=== PATIENT | female | born 1960 | race Caucasian/White ===

== ENCOUNTER 2017-02-13 16:16 | Emergency (ER) | payer MEDICAID ==
[~2017-02-13] VITALS: Ht 157.5 cm; Wt 72.0 kg
[~2017-02-13 16:16] MED LIST: ACET-2708 PO; AMLO10TA80; ASPI81TA2 PO; GABA-290 PO; HYDR-2510 PO; IBUPROFEN; LOVA40TA73 PO; METF-517; NPH,100V11 SUBCUT; OMEG1CAP17 PO; OMEP20CA4 PO
[2017-02-13] MEDS ORDERED: ONDANSETRON HCL 4MG/2ML VIAL IV STA (17:23)
[2017-02-13] MEDS ORDERED: SODIUM CHLORIDE 0.9% 500 ML IV ONE (17:23)
[2017-02-13] MEDS ORDERED: KETOROLAC 30MG/ML VIAL IV STA (17:23)
[2017-02-13] MEDS ORDERED: ASPIRIN 81MG TABLET PO STA (17:23)
[2017-02-13] MEDS ORDERED: MORPHINE SULFATE 4 MG/ML CPJ (NOT FOR IM USE) IV STA (17:23)
[2017-02-13 17:57] LABS: BASOPHILS % 0.6 % (0.0-2.0); EOSINOPHILS % 2.3 % (0.0-5.0); HEMATOCRIT. 36.6 % (36.0-48.0); HEMOGLOBIN. 12.3 g/dL (12.0-16.0); LYMPHOCYTES % 27.4 % (20.0-50.0); MEAN CORPUSCULAR HEMOGLOBIN 28.3 pg (28.0-32.0); MEAN CORPUSCULAR HGB CONC 33.6 g/dL (31.0-37.0); MEAN CORPUSCULAR VOLUME 84.2 fL (81.0-99.0); MEAN PLATELET VOLUME 10.1 fl (7.4-10.4); MONOCYTES % 8.9 % (2.0-8.0); NEUTROPHILS % 60.8 % (40.0-76.0); PLATELET 247 x1000/uL (130-400); RED BLOOD CELL COUNT 4.35 mill/uL (4.2-5.4); RED CELL DISTRIBUTION WIDTH 13.5 % (11.6-14.6); WHITE BLOOD COUNT 10.8 x1000/uL (4.5-11.0)
[2017-02-13 18:05] LABS: PARTIAL THROMBOPLASTIN TIME 25.2 sec (24.0-34.0); PROTHROMBIN TIME 10.1 sec
[2017-02-13 18:11] LABS: ALANINE AMINOTRANSFERASE 26 IU/L (13-61); ALBUMIN 3.5 g/dL (3.4-5.0); ANION GAP 11; CALCIUM 9.1 mg/dL (8.5-10.1); CARBON DIOXIDE 30 mEq/L (21-32); CHLORIDE 105 mEq/L (98-107); INDEX HEMOLYSI 1 (1-3); INDEX ICTERIC 1 (1-4); INDEX LIPEMIC 1 (1-3); LIPASE 255 IU/L (73-393); UREA NITROGEN BLOOD 23 mg/dL (7-21); eGFR > 60 mL/min (>60)
[2017-02-13 18:13] LABS: NT PRO B-TYPE NATRIURETIC PEP 23 pg/mL (5-125); TROPONIN I < 0.02 ng/mL (0.00-0.04)
[2017-02-13] MEDS ORDERED: MORPHINE SULFATE 4 MG/ML CPJ (NOT FOR IM USE) IV ONE (20:00)
[2017-02-13] MEDS ORDERED: ONDANSETRON HCL 4MG/2ML VIAL IV ONE (20:00)
[2017-02-13 20:09] LABS: CLARITY URINE CLEAR (CLEAR); COLOR URINE YELLOW (YELLOW); GLUCOSE URINE NEGATIVE (NEGATIVE); KETONES URINE NEGATIVE (NEGATIVE); LEUKOCYTE ESTERASE URINE 1+ (NEGATIVE); NITRITE URINE NEGATIVE (NEGATIVE); OCCULT BLOOD URINE NEGATIVE (NEGATIVE); PH URINE 7.5 (4.5-8.0); PROTEIN URINE NEGATIVE (NEGATIVE); SPECIFIC GRAVITY URINE 1.007 (1.005-1.030); UROBILINOGEN URINE 0.2 E.U./dL (0.2-1.0)
[2017-02-13 20:23] LABS: BACTERIA URINE TRACE; RBC URINE 0-2 /hpf (0-2); SQUAMOUS EPITHELIAL CELL URINE FEW /lpf (RARE/1+)
[2017-02-14 00:49] VITALS: BP 141/75
== END 2017-02-14 00:53 | disposition home or self-care (01) ==
LOC: ER 19:00
DX: S16.1XXA Strain of muscle, fascia and tendon at neck level, initial encounter (principal); S39.012A Strain of muscle, fascia and tendon of lower back, initial encounter; R07.89 Other chest pain; E11.9 Type 2 diabetes mellitus without complications; E78.00 Pure hypercholesterolemia, unspecified; E03.9 Hypothyroidism, unspecified; I10 Essential (primary) hypertension; Z88.0 Allergy status to penicillin; Z79.82 Long term (current) use of aspirin; Z79.4 Long term (current) use of insulin; Z79.1 Long term (current) use of non-steroidal anti-inflammatories (NSAID); Z79.899 Other long term (current) drug therapy; V89.2XXA Person injured in unspecified motor-vehicle accident, traffic, initial encounter; Y93.89 Activity, other specified; Y92.89 Other specified places as the place of occurrence of the external cause; Y99.8 Other external cause status
CPT/HCPCS: 36415; 70450; 71010; 72100; 72125; 72141; 72146; 72148; 80053; 81001; 83690; 83880; 84443; 84484; 85025; 85610; 85730; 93005; 96361; 96374; 96375; 96376; 99285; J1885; J2270; J2405; J7040

== ENCOUNTER 2017-07-20 15:52 | Inpatient (IN) | payer MEDICAID ==
[~2017-07-20] VITALS: Ht 157.5 cm; Wt 73.0 kg
[~2017-07-20 15:52] MED LIST changes: +ASPI-1160 PO; -ASPI81TA2 PO
[2017-07-20] MEDS ORDERED: NITROGLYCERIN OINT 1GM/INCH UDPKT TD STA (18:11)
[2017-07-20] MEDS ORDERED: MORPHINE SULFATE 4 MG/ML CPJ (NOT FOR IM USE) IV STA (18:11)
[2017-07-20] MEDS ORDERED: ASPIRIN 81MG TABLET PO STA (18:11)
[2017-07-20] MEDS ORDERED: ONDANSETRON HCL 4MG/2ML VIAL IV STA (18:11)
[2017-07-20] MEDS ORDERED: MORPHINE SULFATE 2 MG/ML CPJ (NOT FOR IM USE) IV STA (18:49)
[2017-07-20 18:58] LABS: BASOPHILS % 0.8 % (0.0-2.0); EOSINOPHILS % 2.7 % (0.0-5.0); HEMOGLOBIN. 12.8 g/dL (12.0-16.0); LYMPHOCYTES % 30.4 % (20.0-50.0); MEAN CORPUSCULAR HEMOGLOBIN 28.3 pg (28.0-32.0); MEAN PLATELET VOLUME 10.2 fl (7.4-10.4); MONOCYTES % 9.2 % (2.0-8.0); NEUTROPHILS % 56.9 % (40.0-76.0); PLATELET 246 x1000/uL (130-400); RED BLOOD CELL COUNT 4.52 mill/uL (4.2-5.4); RED CELL DISTRIBUTION WIDTH 13.2 % (11.6-14.6)
[2017-07-20 19:01] LABS: PROTHROMBIN TIME 10.2 sec (9.4-11.6)
[2017-07-20 19:02] LABS: PARTIAL THROMBOPLASTIN TIME 23.6 sec (23.4-31.0)
[2017-07-20 19:10] LABS: CARBON DIOXIDE 29 mEq/L (21-32); CHLORIDE 96 mEq/L (98-107); TROPONIN I < 0.02 ng/mL (0.00-0.04)
[2017-07-20] MEDS ORDERED: SODIUM CHLORIDE 0.9% 1,000 ML IV ONE (19:37)
[2017-07-20] MEDS ORDERED: CLONIDINE 0.1MG TABLET PO PRN (22:45)
[2017-07-20] MEDS ORDERED: ONDANSETRON HCL 4MG/2ML VIAL IV PRN (22:45)
[2017-07-20] MEDS ORDERED: MAGNESIUM/ALUMINUM HYDROXIDE/SIMETHICONE 30ML UDC PO PRN (22:45)
[2017-07-20] MEDS ORDERED: IPRATROPIUM/ALBUTEROL 0.5-3(2.5)MG/3ML NEB INH PRN (22:45)
[2017-07-20] MEDS ORDERED: ACETAMINOPHEN 325MG TABLET PO PRN (22:45)
[2017-07-20] MEDS ORDERED: DOCUSATE SODIUM 100MG CAPSULE PO PRN (22:45)
[2017-07-20 23:51] VITALS: BP 165/80
[2017-07-21] VITALS: BP 129/66
[2017-07-21] MEDS: HYDROCODONE/ACETAMINOPHEN 5/325MG TABLET PO PRN ×3 (00:43→20:50)
[2017-07-21] MEDS ORDERED: DEXTROSE 50% WATER 50ML SYRINGE IV PRN ×2 (03:00→12:30)
[2017-07-21 04:00] VITALS: BP 121/62
[2017-07-21] MEDS: OMEPRAZOLE 20MG CAPSULE EXTENDED RELEASE PO SCH (07:04)
[2017-07-21 07:19] VITALS: BP 141/78
[2017-07-21] MEDS: BLOOD SUGAR DIAGNOSTIC STRIP TEST SCH ×4 (07:20→21:59)
[2017-07-21 07:44] LABS: CARBON DIOXIDE 29 mEq/L (21-32); CHLORIDE 99 mEq/L (98-107); CREATINE KINASE 48 IU/L (26-192); HDL CHOLESTEROL 32 mg/dL (40-59); LDL CHOLESTEROL 82 mg/dL (5-100)
[2017-07-21 07:46] LABS: CREATINE KINASE MB FRACTION 0.6 ng/mL (0.5-3.6); TROPONIN I < 0.02 ng/mL (0.00-0.04)
[2017-07-21] MEDS ORDERED: INSULIN LISPRO 100 UNITS/ML SUBCUT SCH (07:50)
[2017-07-21] MEDS ORDERED: OMEPRAZOLE 20MG CAPSULE EXTENDED RELEASE PO SCH (09:00)
[2017-07-21] MEDS ORDERED: MEDICATION NOT ON FORMULARY EA (Lovastatin 40 MG) PO SCH (09:00)
[2017-07-21] MEDS ORDERED: OMEGA ACID ETHYL ESTERS PO SCH (09:00)
[2017-07-21] MEDS ORDERED: AMLODIPINE 10MG TABLET PO SCH (09:00)
[2017-07-21] MEDS ORDERED: ASPIRIN 81MG TABLET PO SCH (09:30)
[2017-07-21] MEDS: ENOXAPARIN 40MG/0.4ML SYR SUBCUT SCH (09:33)
[2017-07-21] MEDS: ASPIRIN 81MG EC TABLET PO SCH (09:33)
[2017-07-21 12:00] VITALS: BP 140/75
[2017-07-21] MEDS ORDERED: PNEUMOCOCCAL 23-VAL P-SAC VAC 0.5 ML IM ONE (12:00)
[2017-07-21] MEDS ORDERED: INFLUENZA VIRUS VACCINE 0.5ML SYR IM ONE (12:00)
[2017-07-21] MEDS ORDERED: MECLIZINE 25MG TABLET PO PRN (12:15)
[2017-07-21] MEDS: HYDROCHLOROTHIAZIDE 50MG TABLET PO SCH (12:53)
[2017-07-21] MEDS: INSULIN NPH (HUMULIN-N) 100 UNITS/ML 3ML VIAL SUBCUT SCH ×3 (13:00→22:34)
[2017-07-21] MEDS: INSULIN LISPRO 100 UNITS/ML SUBCUT SCH ×3 (13:38→21:57)
[2017-07-21 15:19] VITALS: BP 130/65
[2017-07-21 16:36] LABS: CREATINE KINASE 44 IU/L (26-192); CREATINE KINASE MB FRACTION 0.6 ng/mL (0.5-3.6); TROPONIN I < 0.02 ng/mL (0.00-0.04)
[2017-07-21] MEDS: METFORMIN HCL 500MG TABLET PO SCH (18:21)
[2017-07-21] MEDS: FISH OIL/OMEGA-3 FATTY ACIDS 1000MG CAPSULE PO SCH (18:22)
[2017-07-21 20:00] VITALS: BP 163/78
[2017-07-21] MEDS ORDERED: ATORVASTATIN CALCIUM 10MG TABLET PO SCH (21:00)
[2017-07-21 21:57] LABS: CLARITY URINE CLEAR (CLEAR); COLOR URINE YELLOW (YELLOW); GLUCOSE URINE 3+ (NEGATIVE); KETONES URINE NEGATIVE (NEGATIVE); LEUKOCYTE ESTERASE URINE TRACE (NEGATIVE); NITRITE URINE NEGATIVE (NEGATIVE); OCCULT BLOOD URINE NEGATIVE (NEGATIVE); PH URINE 6.5 (4.5-8.0); PROTEIN URINE NEGATIVE (NEGATIVE); SPECIFIC GRAVITY URINE 1.026 (1.005-1.030); UROBILINOGEN URINE 0.2 E.U./dL (0.2-1.0)
[2017-07-21 22:22] LABS: *AMPHETAMINES SCREEN URINE NEGATIVE (NEGATIVE); *BARBITURATES SCREEN URINE NEGATIVE (NEGATIVE); *BENZODIAZEPINES SCREEN URINE NEGATIVE (NEGATIVE); *COCAINE SCREEN URINE NEGATIVE (NEGATIVE); CANNABINOID URINE SCREEN NEGATIVE (NEGATIVE); METHADONE URINE SCREEN NEGATIVE (NEGATIVE); OPIATES URINE SCREEN PRESUMTIVE POSITIVE (NEGATIVE); PHENCYCLIDINE URINE SCREEN NEGATIVE (NEGATIVE)
[2017-07-21] MEDS: METOPROLOL TARTRATE 25MG TABLET PO SCH (22:24)
[2017-07-22] VITALS: BP 130/71
[2017-07-22 04:00] VITALS: BP 119/71
[2017-07-22 06:11] LABS: BASOPHILS % 0.7 % (0.0-2.0); EOSINOPHILS % 3.2 % (0.0-5.0); HEMATOCRIT. 36.6 % (36.0-48.0); HEMOGLOBIN. 12.3 g/dL (12.0-16.0); LYMPHOCYTES % 37.7 % (20.0-50.0); MEAN CORPUSCULAR HEMOGLOBIN 28.4 pg (28.0-32.0); MEAN CORPUSCULAR VOLUME 84.6 fL (81.0-99.0); MEAN PLATELET VOLUME 10.5 fl (7.4-10.4); MONOCYTES % 9.4 % (2.0-8.0); PLATELET 238 x1000/uL (130-400); RED BLOOD CELL COUNT 4.32 mill/uL (4.2-5.4); RED CELL DISTRIBUTION WIDTH 13.2 % (11.6-14.6)
[2017-07-22 06:39] LABS: CARBON DIOXIDE 30 mEq/L (21-32); CHLORIDE 101 mEq/L (98-107)
[2017-07-22] MEDS: BLOOD SUGAR DIAGNOSTIC STRIP TEST SCH ×2 (06:48→12:51)
[2017-07-22 07:20] VITALS: BP 152/81
[2017-07-22] MEDS: ASPIRIN 81MG EC TABLET PO SCH (08:43)
[2017-07-22] MEDS: OMEPRAZOLE 20MG CAPSULE EXTENDED RELEASE PO SCH (08:43)
[2017-07-22] MEDS: FISH OIL/OMEGA-3 FATTY ACIDS 1000MG CAPSULE PO SCH (08:43)
[2017-07-22] MEDS: METFORMIN HCL 500MG TABLET PO SCH (08:44)
[2017-07-22] MEDS: METOPROLOL TARTRATE 25MG TABLET PO SCH (08:44)
[2017-07-22] MEDS: HYDROCHLOROTHIAZIDE 50MG TABLET PO SCH (08:44)
[2017-07-22] MEDS: INSULIN NPH (HUMULIN-N) 100 UNITS/ML 3ML VIAL SUBCUT SCH ×2 (08:48→12:53)
[2017-07-22] MEDS: INSULIN LISPRO 100 UNITS/ML SUBCUT SCH ×2 (08:48→12:53)
[2017-07-22] MEDS: ENOXAPARIN 40MG/0.4ML SYR SUBCUT SCH (08:51)
[2017-07-22] MEDS ORDERED: AMLODIPINE 2.5MG TABLET PO SCH (09:00)
[2017-07-22 13:18] VITALS: BP 131/78
[2017-07-22] MEDS ORDERED: METOPROLOL TARTRATE 50MG TABLET PO SCH (21:00)
== END 2017-07-22 14:20 | disposition home or self-care (01) | DRG 203 ==
LOC: ER 16:20 → EDBEDREQ 18:14 → 6WST 18:38 → EDBEDREQ 18:40 → EDBEDREQTM 18:40 → ENRESERV 19:58
PROVIDERS: ADMIT Internal Medicine; ATTEND Internal Medicine
DX: M94.0 Chondrocostal junction syndrome [Tietze] (principal); E11.65 Type 2 diabetes mellitus with hyperglycemia; I10 Essential (primary) hypertension; I69.351 Hemiplegia and hemiparesis following cerebral infarction affecting right dominant side; E86.0 Dehydration; E03.9 Hypothyroidism, unspecified; E78.5 Hyperlipidemia, unspecified; Z88.0 Allergy status to penicillin
CPT/HCPCS: 36415; 70450; 71010; 80048; 80053; 80061; 80305; 81001; 82550; 82553; 82962; 83690; 83735; 83880; 84443; 84484; 85025; 85610; 85730; 90686; 93005; 93306; 93970; 96374; 96375; 99285; J1650; J1815; J2270; J2405; J7030; J7620; J8597

== ENCOUNTER 2018-02-25 10:56 | Inpatient (IN) | payer BC, MEDICAID ==
[~2018-02-25] VITALS: Ht 158.8 cm; Wt 77.2 kg
[2018-02-25] MEDS ORDERED: ASPIRIN 81MG TABLET PO STA (11:07)
[2018-02-25] MEDS ORDERED: NITROGLYCERIN OINT 1GM/INCH UDPKT TD STA (11:07)
[2018-02-25] MEDS ORDERED: ONDANSETRON HCL 4MG/2ML VIAL IV STA (11:07)
[2018-02-25] MEDS ORDERED: MORPHINE SULFATE 4 MG/ML CPJ (NOT FOR IM USE) IV STA (11:07)
[2018-02-25 11:35] LABS: BASOPHILS % 0.9 % (0.0-2.0); EOSINOPHILS % 2.4 % (0.0-5.0); HEMATOCRIT. 33.5 % (36.0-48.0); HEMOGLOBIN. 11.4 g/dL (12.0-16.0); MEAN CORPUSCULAR HEMOGLOBIN 28.3 pg (28.0-32.0); MEAN CORPUSCULAR VOLUME 83.6 fL (81.0-99.0); MEAN PLATELET VOLUME 9.8 fl (7.4-10.4); MONOCYTES % 7.7 % (2.0-8.0); PLATELET 293 x1000/uL (130-400); RED BLOOD CELL COUNT 4.01 mill/uL (4.2-5.4); RED CELL DISTRIBUTION WIDTH 13.3 % (11.6-14.6)
[2018-02-25 11:43] LABS: CHLORIDE 102 mEq/L (98-107)
[2018-02-25 11:44] LABS: PARTIAL THROMBOPLASTIN TIME 27.2 sec (23.4-31.0)
[2018-02-25 15:00] VITALS: BP 122/68
[2018-02-25] MEDS ORDERED: REGADENOSON 0.4 MG/5 ML IV NR (15:15)
[2018-02-25] MEDS ORDERED: CLONIDINE 0.2MG TABLET PO PRN (15:15)
[2018-02-25] MEDS ORDERED: CLONIDINE 0.1MG TABLET PO PRN (15:15)
[2018-02-25 16:00] VITALS: BP 122/68
[2018-02-25] MEDS ORDERED: ACETAMINOPHEN 650MG/20.3ML UDC GT PRN (16:00)
[2018-02-25] MEDS ORDERED: ACETAMINOPHEN 325MG TABLET PO PRN (16:00)
[2018-02-25] MEDS ORDERED: ACETAMINOPHEN 650MG SUPP PR PRN (16:00)
[2018-02-25] MEDS ORDERED: DOCUSATE SODIUM 100MG CAPSULE PO PRN (16:00)
[2018-02-25] MEDS ORDERED: DIPHENHYDRAMINE 50MG/ML VIAL IV PRN (16:00)
[2018-02-25] MEDS ORDERED: AMLODIPINE 10MG TABLET PO SCH (16:00)
[2018-02-25] MEDS ORDERED: NA PHOS,M-B/NA PHOS,DI-BA ENEMA 118ML PR PRN (16:00)
[2018-02-25] MEDS ORDERED: GUAIFENESIN 200MG/10ML SUGAR FREE UDC PO PRN (16:00)
[2018-02-25] MEDS ORDERED: MAGNESIUM/ALUMINUM HYDROXIDE/SIMETHICONE 30ML UDC PO PRN (16:00)
[2018-02-25] MEDS ORDERED: PANTOPRAZOLE 40MG DR TABLET PO SCH (16:00)
[2018-02-25] MEDS ORDERED: HYDROCODONE/ACETAMINOPHEN 10/325MG TABLET PO PRN (16:00)
[2018-02-25] MEDS ORDERED: IPRATROPIUM/ALBUTEROL 0.5-3(2.5)MG/3ML NEB INH PRN (16:00)
[2018-02-25] MEDS ORDERED: LORAZEPAM 0.5MG TABLET PO PRN (16:00)
[2018-02-25] MEDS ORDERED: HYDROCODONE/ACETAMINOPHEN 5/325MG TABLET PO PRN (16:00)
[2018-02-25] MEDS ORDERED: DEXTROSE 50% WATER 50ML SYRINGE IV PRN (16:15)
[2018-02-25] MEDS ORDERED: ONDANSETRON 4MG ODT PO PRN (16:15)
[2018-02-25] MEDS ORDERED: CARV25TA47 PO (16:22)
[2018-02-25] MEDS ORDERED: LOSA100T14 MT (16:22)
[2018-02-25] MEDS ORDERED: LEVO88TA7 MT (16:22)
[2018-02-25] MEDS: BLOOD SUGAR DIAGNOSTIC STRIP TEST SCH ×2 (17:43→21:00)
[2018-02-25] MEDS: PANTOPRAZOLE 40MG DR TABLET PO SCH (17:49)
[2018-02-25] MEDS: INSULIN LISPRO 100 UNITS/ML SUBCUT SCH ×2 (17:49→21:00)
[2018-02-25 20:00] VITALS: BP 148/74
[2018-02-25] MEDS: LOSARTAN POTASSIUM 100 MG TABLET PO SCH (22:07)
[2018-02-25] MEDS: AMLODIPINE 5MG TABLET PO SCH (22:07)
[2018-02-25] MEDS: CARVEDILOL 25MG TABLET PO SCH (22:08)
[2018-02-26] VITALS (7 sets, daily range): BP systolic 118–158; BP diastolic 57–77
[2018-02-26 00:55] LABS: *BARBITURATES SCREEN URINE NEGATIVE (NEGATIVE); *BENZODIAZEPINES SCREEN URINE NEGATIVE (NEGATIVE); *COCAINE SCREEN URINE NEGATIVE (NEGATIVE)
[2018-02-26 00:56] LABS: *AMPHETAMINES SCREEN URINE NEGATIVE (NEGATIVE); CANNABINOID URINE SCREEN NEGATIVE (NEGATIVE); METHADONE URINE SCREEN NEGATIVE (NEGATIVE); OPIATES URINE SCREEN PRESUMTIVE POSITIVE (NEGATIVE); PHENCYCLIDINE URINE SCREEN NEGATIVE (NEGATIVE)
[2018-02-26] MEDS: LEVOTHYROXINE SODIUM 88MCG TABLET PO SCH ×2 (05:20→05:22)
[2018-02-26] MEDS: PANTOPRAZOLE 40MG DR TABLET PO SCH (05:21)
[2018-02-26] MEDS: BLOOD SUGAR DIAGNOSTIC STRIP TEST SCH ×4 (06:47→21:00)
[2018-02-26] MEDS: INSULIN LISPRO 100 UNITS/ML SUBCUT SCH ×4 (06:47→21:48)
[2018-02-26 07:25] LABS: BASOPHILS % 0.8 % (0.0-2.0); EOSINOPHILS % 3.3 % (0.0-5.0); HEMATOCRIT. 33.7 % (36.0-48.0); HEMOGLOBIN. 11.5 g/dL (12.0-16.0); LYMPHOCYTES % 32.1 % (20.0-50.0); MEAN CORPUSCULAR HEMOGLOBIN 28.3 pg (28.0-32.0); MEAN CORPUSCULAR VOLUME 82.9 fL (81.0-99.0); MEAN PLATELET VOLUME 10.2 fl (7.4-10.4); NEUTROPHILS % 54.8 % (40.0-76.0); PLATELET 271 x1000/uL (130-400); RED BLOOD CELL COUNT 4.06 mill/uL (4.2-5.4); RED CELL DISTRIBUTION WIDTH 13.6 % (11.6-14.6)
[2018-02-26 07:42] LABS: CHLORIDE 103 mEq/L (98-107)
[2018-02-26 07:52] LABS: HDL CHOLESTEROL 47 mg/dL (40-59)
[2018-02-26 07:54] LABS: LDL CHOLESTEROL 73 mg/dL (5-100)
[2018-02-26 07:55] LABS: CREATINE KINASE 64 IU/L (26-192)
[2018-02-26] MEDS ORDERED: REGADENOSON 0.4 MG/5 ML IV ONE (08:00)
[2018-02-26] MEDS ORDERED: OMEPRAZOLE 20MG CAPSULE EXTENDED RELEASE PO SCH (09:00)
[2018-02-26] MEDS: LOSARTAN POTASSIUM 100 MG TABLET PO SCH (09:32)
[2018-02-26] MEDS: HYDROCHLOROTHIAZIDE 50MG TABLET PO SCH (09:32)
[2018-02-26] MEDS: ASPIRIN 81MG EC TABLET PO SCH (09:33)
[2018-02-26] MEDS: AMLODIPINE 5MG TABLET PO SCH ×2 (09:33→21:46)
[2018-02-26] MEDS: CARVEDILOL 25MG TABLET PO SCH ×2 (09:33→21:45)
[2018-02-27] VITALS: BP 116/64
[2018-02-27 04:00] VITALS: BP 141/66
[2018-02-27 06:45] LABS: BASOPHILS % 0.7 % (0.0-2.0); EOSINOPHILS % 2.8 % (0.0-5.0); HEMATOCRIT. 35.1 % (36.0-48.0); HEMOGLOBIN. 11.8 g/dL (12.0-16.0); LYMPHOCYTES % 29.9 % (20.0-50.0); MEAN CORPUSCULAR VOLUME 83.5 fL (81.0-99.0); MEAN PLATELET VOLUME 10.2 fl (7.4-10.4); MONOCYTES % 9.5 % (2.0-8.0); NEUTROPHILS % 57.1 % (40.0-76.0); PLATELET 277 x1000/uL (130-400); RED CELL DISTRIBUTION WIDTH 13.4 % (11.6-14.6)
[2018-02-27] MEDS: BLOOD SUGAR DIAGNOSTIC STRIP TEST SCH ×2 (07:20→12:20)
[2018-02-27 07:21] LABS: CHLORIDE 103 mEq/L (98-107)
[2018-02-27] MEDS: INSULIN LISPRO 100 UNITS/ML SUBCUT SCH ×2 (07:50→13:54)
[2018-02-27] MEDS: PANTOPRAZOLE 40MG DR TABLET PO SCH (07:56)
[2018-02-27] MEDS: LEVOTHYROXINE SODIUM 88MCG TABLET PO SCH (07:57)
[2018-02-27 08:00] VITALS: BP_SYST 132; BP_SYST 146; BP_DIAS 56; BP_DIAS 64
[2018-02-27] MEDS: LOSARTAN POTASSIUM 100 MG TABLET PO SCH (08:51)
[2018-02-27] MEDS: ASPIRIN 81MG EC TABLET PO SCH (08:51)
[2018-02-27] MEDS: CARVEDILOL 25MG TABLET PO SCH (08:52)
[2018-02-27] MEDS: HYDROCHLOROTHIAZIDE 50MG TABLET PO SCH (08:52)
[2018-02-27] MEDS: AMLODIPINE 5MG TABLET PO SCH (08:52)
[2018-02-27 12:00] VITALS: BP_SYST 122; BP_SYST 130; BP_DIAS 61; BP_DIAS 68
[2018-02-27 13:15] VITALS: BP 123/61
== END 2018-02-27 15:45 | disposition home or self-care (01) | DRG 313 ==
LOC: ER 10:56 → 6WST 11:45 → EDBEDREQ 11:57 → ENRESERV 12:44
PROVIDERS: ADMIT Internal Medicine; ATTEND Internal Medicine
DX: R07.89 Other chest pain (principal); E11.40 Type 2 diabetes mellitus with diabetic neuropathy, unspecified; I69.351 Hemiplegia and hemiparesis following cerebral infarction affecting right dominant side; E03.9 Hypothyroidism, unspecified; E78.00 Pure hypercholesterolemia, unspecified; E78.5 Hyperlipidemia, unspecified; I10 Essential (primary) hypertension; Z79.84 Long term (current) use of oral hypoglycemic drugs; Z79.899 Other long term (current) drug therapy; Z88.0 Allergy status to penicillin; Z79.1 Long term (current) use of non-steroidal anti-inflammatories (NSAID)
CPT/HCPCS: 36415; 71045; 78452; 80048; 80053; 80061; 80305; 82550; 82553; 82962; 83690; 83735; 83880; 84443; 84484; 85025; 85379; 85610; 85730; 93005; 93306; 96374; 96375; 97162; 99291; A9500; J1815; J2270; J2405; J2785; J7030

== ENCOUNTER 2018-10-31 12:26 | Inpatient (IN) | payer BC, MEDICAID ==
[~2018-10-31] VITALS: Ht 162.6 cm; Wt 73.1 kg
[~2018-10-31 12:26] MED LIST changes: +CARV25TA47 PO; -IBUPROFEN; +LEVO88TA7 MT; +LOSA100T14 MT
[2018-10-31] MEDS ORDERED: MORPHINE SULFATE 4 MG/ML CPJ (NOT FOR IM USE) IV STA (13:10)
[2018-10-31] MEDS ORDERED: ONDANSETRON HCL 4MG/2ML INJ IV STA (13:10)
[2018-10-31] MEDS ORDERED: NITROGLYCERIN OINT 1GM/INCH UDPKT TD ONE (13:15)
[2018-10-31] MEDS ORDERED: ASPIRIN 81MG TABLET PO ONE (13:15)
[2018-10-31 14:37] LABS: CHLORIDE 101 mEq/L (98-107)
[2018-10-31 14:39] LABS: PARTIAL THROMBOPLASTIN TIME 22.4 sec (23.4-31.0); PROTHROMBIN TIME 10.1 sec (9.1-11.1)
[2018-10-31 14:44] LABS: BASOPHILS % 0.7 % (0.0-2.0); EOSINOPHILS % 1.7 % (0.0-5.0); HEMATOCRIT. 34.5 % (36.0-48.0); HEMOGLOBIN. 11.3 g/dL (12.0-16.0); LYMPHOCYTES % 26.1 % (20.0-50.0); MEAN CORPUSCULAR HEMOGLOBIN 27.5 pg (28.0-32.0); MEAN CORPUSCULAR VOLUME 84.4 fL (81.0-99.0); MEAN PLATELET VOLUME 10.5 fl (7.4-10.4); MONOCYTES % 6.5 % (2.0-8.0); PLATELET 312 x1000/uL (130-400); RED BLOOD CELL COUNT 4.09 mill/uL (4.2-5.4); RED CELL DISTRIBUTION WIDTH 13.5 % (11.6-14.6)
[2018-10-31] MEDS ORDERED: CLONIDINE 0.1MG TABLET PO PRN (16:00)
[2018-10-31] MEDS ORDERED: IPRATROPIUM/ALBUTEROL 0.5-3(2.5)MG/3ML NEB INH PRN (20:45)
[2018-10-31] MEDS ORDERED: LORAZEPAM 0.5MG TABLET PO PRN (20:45)
[2018-10-31] MEDS ORDERED: ONDANSETRON HCL 4MG/2ML INJ IV PRN (20:45)
[2018-10-31] MEDS ORDERED: HYDROCODONE/ACETAMINOPHEN 5/325MG TABLET PO PRN (20:45)
[2018-10-31] MEDS ORDERED: ACETAMINOPHEN 325MG TABLET PO PRN (20:45)
[2018-10-31] MEDS ORDERED: DOCUSATE SODIUM 100MG CAPSULE PO PRN (20:45)
[2018-10-31] MEDS: ATORVASTATIN CALCIUM 20MG TABLET PO SCH (21:00)
[2018-10-31 21:04] LABS: CLARITY URINE CLEAR (CLEAR); COLOR URINE YELLOW (YELLOW); KETONES URINE NEGATIVE (NEGATIVE); LEUKOCYTE ESTERASE URINE TRACE (NEGATIVE); NITRITE URINE NEGATIVE (NEGATIVE); OCCULT BLOOD URINE NEGATIVE (NEGATIVE); PROTEIN URINE NEGATIVE (NEGATIVE); UROBILINOGEN URINE 0.2 E.U./dL (0.2-1.0)
[2018-10-31 21:22] LABS: *AMPHETAMINES SCREEN URINE NEGATIVE (NEGATIVE); *BARBITURATES SCREEN URINE NEGATIVE (NEGATIVE); *COCAINE SCREEN URINE NEGATIVE (NEGATIVE)
[2018-10-31 21:23] LABS: *BENZODIAZEPINES SCREEN URINE NEGATIVE (NEGATIVE); CANNABINOID URINE SCREEN NEGATIVE (NEGATIVE); METHADONE URINE SCREEN NEGATIVE (NEGATIVE); OPIATES URINE SCREEN PRESUMTIVE POSITIVE (NEGATIVE); PHENCYCLIDINE URINE SCREEN NEGATIVE (NEGATIVE)
[2018-11-01] MEDS: NITROGLYCERIN OINT 1GM/INCH UDPKT TD SCH ×5 (06:00→18:21)
[2018-11-01 06:23] LABS: BASOPHILS % 0.5 % (0.0-2.0); EOSINOPHILS % 2.2 % (0.0-5.0); HEMATOCRIT. 30.4 % (36.0-48.0); HEMOGLOBIN. 9.9 g/dL (12.0-16.0); LYMPHOCYTES % 30.3 % (20.0-50.0); MEAN CORPUSCULAR HEMOGLOBIN 27.8 pg (28.0-32.0); MEAN CORPUSCULAR VOLUME 85.8 fL (81.0-99.0); MEAN PLATELET VOLUME 9.9 fl (7.4-10.4); MONOCYTES % 8.1 % (2.0-8.0); NEUTROPHILS % 58.9 % (40.0-76.0); PLATELET 286 x1000/uL (130-400); RED BLOOD CELL COUNT 3.55 mill/uL (4.2-5.4); RED CELL DISTRIBUTION WIDTH 13.2 % (11.6-14.6)
[2018-11-01 06:33] LABS: CHLORIDE 107 mEq/L (98-107)
[2018-11-01 06:41] LABS: LDL CHOLESTEROL 88 mg/dL (5-100)
[2018-11-01 06:42] LABS: CREATINE KINASE MB FRACTION < 1.0 ng/mL (0.5-3.6)
[2018-11-01 06:43] LABS: CREATINE KINASE 55 IU/L (26-192); HDL CHOLESTEROL 43 mg/dL (40-59)
[2018-11-01] MEDS ORDERED: REGADENOSON 0.4 MG/5 ML IV SCH (15:15)
[2018-11-01] MEDS ORDERED: DEXTROSE 50% WATER 50ML SYRINGE IV PRN (17:04)
[2018-11-01 17:36] VITALS: BP 128/71
[2018-11-01] MEDS ORDERED: AMLO10TA80 MT (18:05)
[2018-11-01] MEDS ORDERED: LOVA40TA73 MT (18:10)
[2018-11-01] MEDS ORDERED: INSLIS SUBCUT ×2 (18:10)
[2018-11-01] MEDS ORDERED: OMEP40CA34 MT (18:10)
[2018-11-01] MEDS ORDERED: INSU100I28 SQ (18:10)
[2018-11-01] MEDS ORDERED: METF-816 MT (18:10)
[2018-11-01] MEDS: BLOOD SUGAR DIAGNOSTIC STRIP TEST SCH ×2 (18:11→21:00)
[2018-11-01] MEDS: ASPIRIN 325MG EC TABLET PO SCH (18:21)
[2018-11-01] MEDS: CARVEDILOL 12.5MG TABLET PO SCH (18:21)
[2018-11-01] MEDS: INSULIN LISPRO 100 UNITS/ML SUBCUT SCH ×2 (18:25→21:59)
[2018-11-01 20:49] VITALS: BP 123/62
[2018-11-01] MEDS: LOSARTAN POTASSIUM 25 MG TABLET PO SCH (21:56)
[2018-11-01] MEDS: ATORVASTATIN CALCIUM 20MG TABLET PO SCH (21:56)
[2018-11-02] MEDS: NITROGLYCERIN OINT 1GM/INCH UDPKT TD SCH ×4 (00:21→17:34)
[2018-11-02 00:31] VITALS: BP 128/67
[2018-11-02 04:00] VITALS: BP 143/70
[2018-11-02] MEDS: BLOOD SUGAR DIAGNOSTIC STRIP TEST SCH ×4 (06:43→21:00)
[2018-11-02 07:12] LABS: BASOPHILS % 0.6 % (0.0-2.0); EOSINOPHILS % 2.6 % (0.0-5.0); HEMATOCRIT. 31.6 % (36.0-48.0); HEMOGLOBIN. 10.4 g/dL (12.0-16.0); LYMPHOCYTES % 30.4 % (20.0-50.0); MEAN CORPUSCULAR VOLUME 84.7 fL (81.0-99.0); MEAN PLATELET VOLUME 10.5 fl (7.4-10.4); MONOCYTES % 9.8 % (2.0-8.0); NEUTROPHILS % 56.6 % (40.0-76.0); PLATELET 292 x1000/uL (130-400); RED BLOOD CELL COUNT 3.72 mill/uL (4.2-5.4); RED CELL DISTRIBUTION WIDTH 13.3 % (11.6-14.6)
[2018-11-02] MEDS: INSULIN LISPRO 100 UNITS/ML SUBCUT SCH ×5 (07:50→22:18)
[2018-11-02 08:00] VITALS: BP 158/72
[2018-11-02] MEDS: LOSARTAN POTASSIUM 25 MG TABLET PO SCH ×2 (08:58→21:23)
[2018-11-02] MEDS: CARVEDILOL 12.5MG TABLET PO SCH ×2 (08:58→17:30)
[2018-11-02] MEDS: ASPIRIN 325MG EC TABLET PO SCH (08:58)
[2018-11-02] MEDS ORDERED: REGADENOSON 0.4 MG/5 ML IV ONE (10:45)
[2018-11-02 11:56] LABS: CHLORIDE 107 mEq/L (98-107)
[2018-11-02 12:00] VITALS: BP 158/71
[2018-11-02 15:24] LABS: PHOSPHORUS 3.1 mg/dL (2.5-4.9)
[2018-11-02 15:30] LABS: T4 FREE 1.09 ng/dL (0.76-1.46)
[2018-11-02 15:53] LABS: FERRITIN 22 ng/mL (10-291)
[2018-11-02 16:00] VITALS: BP 178/86
[2018-11-02 16:22] LABS: FOLIC ACID (FOLATE) SERUM >20 ng/mL ng/mL (>5.38)
[2018-11-02 16:31] LABS: VITAMIN B12 SERUM 804 pg/mL (211-911)
[2018-11-02] MEDS: OMEPRAZOLE 20MG CAPSULE EXTENDED RELEASE PO SCH (19:12)
[2018-11-02 20:00] VITALS: BP 159/76
[2018-11-02] MEDS ORDERED: ATORVASTATIN CALCIUM 10MG TABLET PO SCH (21:00)
[2018-11-02] MEDS: ATORVASTATIN CALCIUM 20MG TABLET PO SCH (21:23)
[2018-11-02] MEDS: INSULIN GLARGINE UD 100 UNITS/ML SYR SUBCUT SCH (22:19)
[2018-11-03] VITALS: BP 157/69
[2018-11-03 06:00] VITALS: BP 168/77
[2018-11-03] MEDS: NITROGLYCERIN OINT 1GM/INCH UDPKT TD SCH ×3 (06:00→12:00)
[2018-11-03 06:19] LABS: BASOPHILS % 0.5 % (0.0-2.0); EOSINOPHILS % 1.7 % (0.0-5.0); HEMATOCRIT. 35.6 % (36.0-48.0); HEMOGLOBIN. 11.5 g/dL (12.0-16.0); LYMPHOCYTES % 21.7 % (20.0-50.0); MEAN CORPUSCULAR HEMOGLOBIN 27.8 pg (28.0-32.0); MEAN CORPUSCULAR VOLUME 86.4 fL (81.0-99.0); MONOCYTES % 7.5 % (2.0-8.0); NEUTROPHILS % 68.6 % (40.0-76.0); PLATELET 271 x1000/uL (130-400); RED BLOOD CELL COUNT 4.12 mill/uL (4.2-5.4); RED CELL DISTRIBUTION WIDTH 13.3 % (11.6-14.6)
[2018-11-03 06:21] LABS: CHLORIDE 108 mEq/L (98-107)
[2018-11-03] MEDS: BLOOD SUGAR DIAGNOSTIC STRIP TEST SCH ×2 (06:44→12:20)
[2018-11-03] MEDS: OMEPRAZOLE 20MG CAPSULE EXTENDED RELEASE PO SCH ×2 (06:47→17:56)
[2018-11-03] MEDS ORDERED: LEVOTHYROXINE SODIUM 88MCG TABLET PO SCH (07:20)
[2018-11-03 08:00] VITALS: BP 183/75
[2018-11-03] MEDS: CARVEDILOL 12.5MG TABLET PO SCH ×2 (08:47→17:56)
[2018-11-03] MEDS: LOSARTAN POTASSIUM 25 MG TABLET PO SCH (08:47)
[2018-11-03] MEDS: ASPIRIN 325MG EC TABLET PO SCH (08:47)
[2018-11-03] MEDS: INSULIN LISPRO 100 UNITS/ML SUBCUT SCH ×4 (08:50→14:08)
[2018-11-03 12:30] VITALS: BP 158/78
[2018-11-03] MEDS: INSULIN GLARGINE UD 100 UNITS/ML SYR SUBCUT SCH (14:05)
[2018-11-03 16:00] VITALS: BP 150/75
[2018-11-03] MEDS ORDERED: ATOR20TA PO (16:46)
[2018-11-03] MEDS ORDERED: COR12 PO (16:46)
[2018-11-03] MEDS ORDERED: LOSA25TA3 PO (16:46)
[2018-11-03 18:46] VITALS: BP 140/65
[2018-11-04] MEDS ORDERED: FAMOTIDINE 20MG TABLET PO SCH (09:00)
== END 2018-11-03 20:00 | disposition home or self-care (01) | DRG 203 ==
LOC: ER 13:12 → EDBEDREQTM 14:33 → EDBEDREQ 14:33 → 6WST 11-01 14:32 → ENRESERV 11-01 16:08
PROVIDERS: ADMIT Internal Medicine; ATTEND Internal Medicine
DX: M94.0 Chondrocostal junction syndrome [Tietze] (principal); I11.9 Hypertensive heart disease without heart failure; I69.351 Hemiplegia and hemiparesis following cerebral infarction affecting right dominant side; D50.9 Iron deficiency anemia, unspecified; E03.9 Hypothyroidism, unspecified; E11.9 Type 2 diabetes mellitus without complications; E78.00 Pure hypercholesterolemia, unspecified; N39.0 Urinary tract infection, site not specified; E78.5 Hyperlipidemia, unspecified; K21.9 Gastro-esophageal reflux disease without esophagitis; R94.6 Abnormal results of thyroid function studies; Z79.890 Hormone replacement therapy; Z79.4 Long term (current) use of insulin; Z79.82 Long term (current) use of aspirin; Z88.0 Allergy status to penicillin; Z79.899 Other long term (current) drug therapy
CPT/HCPCS: 36415; 71045; 78452; 80048; 80061; 80305; 82550; 82553; 82607; 82728; 82746; 82962; 83540; 83550; 83735; 83880; 84100; 84439; 84443; 84481; 84484; 93005; 93017; 93306; 96374; 96375; 97161; 99285; A9500; J1815; J2270; J2405; J2785

== ENCOUNTER 2019-11-23 15:11 | Emergency (ER) | payer MEDICAID ==
[~2019-11-23] VITALS: Ht 157.5 cm; Wt 62.0 kg
[~2019-11-23 15:11] MED LIST changes: -ACET-2708 PO; -AMLO10TA80; +ATOR20TA PO; -CARV25TA47 PO; +COR12 PO; -GABA-290 PO; -HYDR-2510 PO; +INSLIS SUBCUT; +INSU100I28 SQ; -LOSA100T14 MT; +LOSA25TA3 PO; -LOVA40TA73 PO; -METF-517; +METF-816 MT; -NPH,100V11 SUBCUT; -OMEG1CAP17 PO; -OMEP20CA4 PO; +OMEP40CA12 MT
[2019-11-23] MEDS ORDERED: ACETAMINOPHEN 325MG TABLET PO ONE (18:45)
[2019-11-23 20:10] VITALS: BP 112/62
== END 2019-11-23 20:11 | disposition home or self-care (01) ==
LOC: ER 15:11
DX: R51 Headache (principal); S09.8XXA Other specified injuries of head, initial encounter; E11.9 Type 2 diabetes mellitus without complications; E78.00 Pure hypercholesterolemia, unspecified; I10 Essential (primary) hypertension; W10.9XXA Fall (on) (from) unspecified stairs and steps, initial encounter; Y93.9 Activity, unspecified; Y92.9 Unspecified place or not applicable; Z79.4 Long term (current) use of insulin; Z88.0 Allergy status to penicillin; Z79.82 Long term (current) use of aspirin
CPT/HCPCS: 73030; 73620; 99284